=== PATIENT | female | born 1945 | race Caucasian/White ===

== ENCOUNTER → 2017-03-26 | Outpatient (CLI) | payer OTHER, MEDICARE ==
--- NOTE | 2017-03-26 14:39 | MAMMOGRAPHY REPORT ---
BILATERAL DIGITAL SCREENING MAMMOGRAM TOMOSYNTHESIS WITH CAD: 03/26/2017 CLINICAL HISTORY: Routine screening. Patient has no complaints. TECHNIQUE: Breast tomosynthesis in addition to standard 2D mammography was performed. Current study was also evaluated with a Computer Aided Detection (CAD) system. COMPARISON: Comparison is made to exams dated: 02/26/2016 mammogram, 02/22/2015 mammogram, 02/21/2014 mammogram, 01/27/2013 mammogram, 01/26/2012 mammogram - [facility], and 10/18/2007. BREAST COMPOSITION: There are scattered areas of fibroglandular density in both breasts. FINDINGS: No suspicious masses, calcifications, or areas of architectural distortion are noted in ei ther breast. There has been no significant interval change compared to prior exams. Focal asymmetry in the left upper outer quadrant is stable dating back to at least the 2007 and 2009 exams, and consi dered benign given long-term stability. IMPRESSION: ACR BI-RADS CATEGORY 2: BENIGN There is no mammographic evidence of malignancy. A 1 year screening mammogram is recommended. The pa tient will receive written notification of the results. Approximately 10% of breast cancers are not detected with mammography. A negative mammographic report should not delay biopsy if a clinically suggestive mass is present. Taryn Fortune M.D. /:03/26/2017 12:23:46 [employer] Faculty Member: Ada GLORIA(Olya)(Aminta), [facility] letter sent: Normal 1/2 BI-RADS Code: ACR BI-RADS Category 2: Benign
== END | disposition home or self-care (01) ==
LOC: C.MAMM 10:26
PROVIDERS: ATTEND Internal Medicine
DX: Z12.31 Encounter for screening mammogram for malignant neoplasm of breast (principal)

== ENCOUNTER 2017-07-10 14:36 | Emergency (ER) | payer OTHER, MEDICARE ==
[~2017-07-10] VITALS: Ht 165.1 cm; Wt 58.0 kg
[2017-07-10 14:44] VITALS: TEMP 36.6; Ht 165.1 cm; Wt 58.0 kg
[2017-07-10 15:02] VITALS: O2SAT 98
--- NOTE | 2017-07-10 15:24 | EMERGENCY ROOM VISIT NOTE ---
History Report prepared by Lazaroibharjeet: Emelina Mi Under the Supervision of: Dr. Belle Marvin D.O. First contact with patient: 14:49 Chief Complaint: IRREGULAR HEARTBEAT Stated Complaint: HEART RACING Nursing Triage Summary: patient states she has felt an "irregular heart beat" for about 1 week. Called PCP and was not able to get in until Thursday. Patient states her irregular heart beat is on and off. not constant. 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 She notes it "feels like her heart is skipping a beat." She reports she called her PCP but could not get into her PCP until a week from today, which is why she is at the ED today. She reports she sometimes feels weak and like she is "going to black out." Pt denies headache, LOC, change in vision, fevers, chest pain, abdominal pain, shortness of breath, nausea, vomiting, diarrhea, pain with urination, melena, recent travel. She does not take any medications. Pt states she walks 2 miles daily and has no specific symptoms while walking but feels more tired when she is done. 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 Review of Systems See HPI for pertinent positives & negatives. A total of 10 systems reviewed and were otherwise negative. Family History High blood pressure Social History Smoking Status: Never Smoker Smokeless Tobacco Use: Unknown Housing Status: lives with significant other Occupation Status: retired Current/Historical Medications No Active Prescriptions or Reported Meds Allergies Coded Allergies: Penicillins (Unverified Allergy, Intermediate, RASH, 07/10/17) Sulfa Antibiotics (Unverified Allergy, Intermediate, HIVES, 07/10/17) Physical Exam Vital Signs Date Time Temp Pulse Resp B/P (MAP) Pulse Ox O2 Delivery O2 Flow Rate FiO2 07/10/17 18:20 79 16 144/61 98 07/10/17 16:41 99 Room Air 4/27/18 16:12 76 20 142/51 99 Room Air 07/10/17 15:21 83 07/10/17 15:02 98 Room Air 07/10/17 14:44 36.6 86 16 151/74 97 Room Air Physical Exam GENERAL: alert, well appearing, well nourished, no distress, non-toxic EYE EXAM: normal conjunctiva, PERRL and EOM's grossly intact OROPHARYNX: no exudate, no erythema, lips, buccal mucosa, and tongue normal and mucous membranes are moist NECK: supple, no nuchal rigidity, no adenopathy, non-tender LUNGS: Clear to auscultation. Normal chest wall mechanics, no w/r/r HEART: no murmurs, S1 normal and S2 normal ABDOMEN: abdomen soft, non-tender, normo-active bowel sounds, no masses, no rebound or guarding. BACK: Back is symmetrical on inspection and there is no deformity, no midline tenderness, no CVA tenderness. SKIN: no rashes and no bruising UPPER EXTREMITIES: upper extremities are grossly normal. LOWER EXTREMITIES: No pitting edema. NEURO EXAM: Normal sensorium, cranial nerves II-XII grossly intact, normal speech, no gross weakness of arms, no gross weakness of legs. No ataxia, nml gait. Medical Decision & Procedures ER Provider Diagnostic Interpretation: Radiology results have been interpreted by the radiologist and reviewed by me. CHEST ONE VIEW PORTABLE CLINICAL HISTORY: Palpitations. COMPARISON STUDY: No previous studies for comparison. FINDINGS: The lung volumes are normal. Lungs are clear. No pneumothorax or pleural effusion is present. There is no evidence for pulmonary edema. Cardiac size is normal. Mediastinal contours are normal. IMPRESSION: No acute cardiopulmonary findings. Electronically signed by: Panchito Nelson M.D. 07/10/2017 3:33 PM (CHEST FOR PE) ANGIO WITH CT DOSE: 214.95 mGy.cm HISTORY: Chest pain dyspnea TECHNIQUE: Multiaxial CT images of the chest were performed following the intravenous administration of contrast to evaluate the pulmonary arteries. Maximal intensity projection images were also obtained. A dose lowering technique was utilized adhering to the principles of ALARA. COMPARISON STUDY: None. FINDINGS: There is a normal caliber thoracic aorta with no evidence for dissection. There is no evidence for pulmonary embolus. No pleural effusions. No pneumothorax. The liver and spleen are unremarkable. No mediastinal or hilar lymphadenopathy. The central airways are patent. The lungs are clear. IMPRESSION: No evidence for pulmonary embolus. The lungs are clear. The above report was generated using voice recognition software. It may contain grammatical, syntax or spelling errors. Electronically signed by: Tang Díaz M.D. 07/10/2017 6:02 PM Laboratory Results 07/10/17 15:25 Red Blood Count 4.42, Mean Corpuscular Volume 89.8, Mean Corpuscular Hemoglobin 31.7, Mean Corpuscular Hemoglobin Concent 35.3, Mean Platelet Volume 11.0, Neutrophils (%) (Auto) 76.5, Lymphocytes (%) (Auto) 17.9, Monocytes (%) (Auto) 4.6, Eosinophils (%) (Auto) 0.4, Basophils (%) (Auto) 0.3, Neutrophils # (Auto) 5.36, Lymphocytes # (Auto) 1.25, Monocytes # (Auto) 0.32, Eosinophils # (Auto) 0.03, Basophils # (Auto) 0.02 07/10/17 15:25 Test 07/10/17 15:25 07/10/17 15:29 07/10/17 16:20 07/10/17 17:03 White Blood Count 7.00 K/uL (4.8-10.8) Red Blood Count 4.42 M/uL (4.2-5.4) Hemoglobin 14.0 g/dL (12.0-16.0) Hematocrit 39.7 % (37-47) Mean Corpuscular Volume 89.8 fL (80-100) Mean Corpuscular Hemoglobin 31.7 pg (25-34) Mean Corpuscular Hemoglobin Concent 35.3 g/dl (32-36) Platelet Count 201 K/uL (130-400) Mean Platelet Volume 11.0 fL (7.4-10.4) Neutrophils (%) (Auto) 76.5 % Lymphocytes (%) (Auto) 17.9 % Monocytes (%) (Auto) 4.6 % Eosinophils (%) (Auto) 0.4 % Basophils (%) (Auto) 0.3 % Neutrophils # (Auto) 5.36 K/uL (1.4-6.5) Lymphocytes # (Auto) 1.25 K/uL (1.2-3.4) Monocytes # (Auto) 0.32 K/uL (0.11-0.59) Eosinophils # (Auto) 0.03 K/uL (0-0.5) Basophils # (Auto) 0.02 K/uL (0-0.2) RDW Standard Deviation 42.3 fL (36.4-46.3) RDW Coefficient of Variation 12.9 % (11.5-14.5) Immature Granulocyte % (Auto) 0.3 % Immature Granulocyte # (Auto) 0.02 K/uL (0.00-0.02) Anion Gap 6.0 mmol/L (3-11) Est Creatinine Clear Calc Drug Dose 35.5 ml/min Estimated GFR () 47.9 Estimated GFR (Non- 41.3 BUN/Creatinine Ratio 10.2 (10-20) Calcium Level 9.1 mg/dl (8.5-10.1) Magnesium Level 2.2 mg/dl (1.8-2.4) Total Bilirubin 0.4 mg/dl (0.2-1) Aspartate Amino Transf (AST/SGOT) 16 U/L (15-37) Alanine Aminotransferase (ALT/SGPT) 17 U/L (12-78) Alkaline Phosphatase 63 U/L (45-117) Troponin I < 0.015 ng/ml (0-0.045) Pro-B-Type Natriuretic Peptide 3120 pg/ml (0-900) Total Protein 7.1 gm/dl (6.4-8.2) Albumin 4.0 gm/dl (3.4-5.0) Globulin 3.1 gm/dl (2.5-4.0) Albumin/Globulin Ratio 1.3 (0.9-2) Thyroid Stimulating Hormone (TSH) 1.570 uIu/ml (0.300-4.500) Bedside Troponin I < 0.030 ng/ml (0-0.045) Urine Color YELLOW Urine Appearance CLEAR (CLEAR) Urine pH 6.0 (4.5-7.5) Urine Specific [place] 1.009 (1.000-1.030) Urine Protein NEG (NEG) Urine Glucose (UA) NEG (NEG) Urine Ketones NEG (NEG) Urine Occult Blood NEG (NEG) Urine Nitrite NEG (NEG) Urine Bilirubin NEG (NEG) Urine Urobilinogen NEG (NEG) Urine Leukocyte Esterase NEG (NEG) Prothrombin Time 10.0 SECONDS (9.0-12.0) Prothromb Time International Ratio 1.0 (0.9-1.1) D-Dimer 550 ug/L FEU (0-500) Laboratory results per my review. ECG Per My Interpretation Indication: palpitations Rate (beats per minute): 83 Rhythm: sinus rhythm Findings: ST depression, T-wave inversion (V4, V5, and V6. T wave inversion in I and AVL ) Comparison ECG Date: January 26, 2012 Change: T wave inversion in I and AVL are new. ED Course 1505: The patient was evaluated in room B3. A complete history and physical exam was performed. 165: I reevaluated the patient at this time. She still wants to go home. 1713: I discussed the patients case with Dr. Mittal, Cardiology. He states as long as the dimer is negative, she should call the office on Thursday for a follow up and an outpatient echo. 1740: I checked on the patient at this time. She is agreeable to the CAT scan. If the CAT scan is clean, she can go home. 1812: Upon reevaluation, the patient is feeling better. I discussed the findings and the treatment plan with the patient. She verbalizes agreement and understanding. She was discharged home. Medical Decision Differential diagnosis: Etiologies such as premature contractions, electrolyte abnormality, cardiac dysrhythmia, thyroid dysfunction, pulmonary embolism, infection, gastrointestinal, metabolic, infection, hypo/hyperglycemia, electrolyte abnormalities, cardiac sources, intracerebral event, toxicologic, neurologic, as well as others were entertained. Pt well appearing here. No ectopy or dysrhythmia noted on tele. VS stable. Labs and CTA chest reassuring with the exception of an elevated BNP. No overt sx of CHF, pt without increased WOB or hypoxia. Pt aware of BNP and discussion with cardiology and need for close f/u and outpt echo. Doubt acs, no evidence of tamponade, effusion, pna, dissection, pe. All questions answered at bedside and pt and verbalized understanding and were agreeable with plan. I do not suspect neuro etiology for weakness, no evidence of infectious etiology. Medication Reconcilliation Current Medication List: was personally reviewed by me Blood Pressure Screening Patient's blood pressure: Elevated blood pressure Blood pressure disposition: Elevated BP felt to be situational Consults Time Called: 1700 Consulting Physician: Dr. Mittal, Cardiology Returned Call: 1713 I discussed the patients case with Dr. Mittal, Cardiology. He states as long as the dimer is negative, she should call the office on Thursday for a follow up and an outpatient echo. Impression Primary Impression: Palpitations Additional Impressions: Fatigue Elevated brain natriuretic peptide (BNP) level Scribe Attestation The scribe's documentation has been prepared under my direction and personally reviewed by me in its entirety. I confirm that the note above accurately reflects all work, treatment, procedures, and medical decision making performed by me. Departure Information Dispostion Home / Self-Care Prescriptions No Active Prescriptions or Reported Meds Referrals Cezar Alejandro D.O. (PCP) Forms HOME CARE DOCUMENTATION FORM, IMPORTANT VISIT INFORMATION Patient Instructions My [facility] Additional Instructions Please call the cardiology office first thing Thursday morning to schedule an appointment for next week as well as an echo of your heart. Please avoid strenuous activity or heavy lifting until you are otherwise seen and evaluated. You may eat and drink regularly, however please try to avoid salt in your diet. If you have any worsening palpitations, develop chest pain or pressure, trouble breathing, dizziness or lightheadedness, fevers or chills, swelling in your legs, or you have any other new concerns, please return the emergency room. Problem Qualifiers Additional Impressions: Fatigue Fatigue type: unspecified Qualified Codes: R53.83 - Other fatigue
--- NOTE | 2017-07-10 15:34 | DIAGNOSTIC IMAGING REPORT ---
CHEST ONE VIEW PORTABLE CLINICAL HISTORY: Palpitations. COMPARISON STUDY: No previous studies for comparison. FINDINGS: The lung volumes are normal. Lungs are clear. No pneumothorax or pleural effusion is present. There is no evidence for pulmonary edema. Cardiac size is normal. Mediastinal contours are normal. IMPRESSION: No acute cardiopulmonary findings. Electronically signed by: Panchito Nelson M.D. 07/10/2017 3:33 PM Dictated Date/Time: 07/10/2017 3:32 PM
[2017-07-10 15:38] LABS: BASO % 0.3 %; BASO ABS # 0.02 K/uL (0-0.2); EOS % 0.4 %; EOS ABS # 0.03 K/uL (0-0.5); HEMATOCRIT 39.7 % (37-47); IG# 0.02 K/uL (0.00-0.02); LYMPH % 17.9 %; LYMPH ABS # 1.25 K/uL (1.2-3.4); MEAN CELL VOLUME 89.8 fL (80-100); MEAN CORPUSCULAR HEMOGLOBIN 31.7 pg (25-34); MEAN CORPUSCULAR HGB CONC 35.3 g/dl (32-36); MONO % 4.6 %; MONO ABS # 0.32 K/uL (0.11-0.59); NEUT % 76.5 %; NEUT ABS # 5.36 K/uL (1.4-6.5); PLATELET COUNT 201 K/uL (130-400); RED CELL DISTRIBUTION WIDTH CV 12.9 % (11.5-14.5); RED CELL DISTRIBUTION WIDTH SD 42.3 fL (36.4-46.3)
[2017-07-10 15:54] LABS: BLOOD UREA NITROGEN 13 mg/dl (7-18); CALCIUM 9.1 mg/dl (8.5-10.1); CARBON DIOXIDE 27 mmol/L (21-32); CREATININE 1.29 mg/dl (0.60-1.20); GLUCOSE 159 mg/dl (70-99); POTASSIUM 3.5 mmol/L (3.5-5.1); SODIUM 140 mmol/L (136-145)
[2017-07-10 16:05] LABS: ALKALINE PHOSPHATASE 63 U/L (45-117); ALT/SGPT 17 U/L (12-78); AST/SGOT 16 U/L (15-37); TOTAL PROTEIN 7.1 gm/dl (6.4-8.2)
[2017-07-10] MEDS ORDERED: OPTIRAY 320 IV PRN (17:45)
--- NOTE | 2017-07-10 18:04 | DIAGNOSTIC IMAGING REPORT ---
(CHEST FOR PE) ANGIO WITH CT DOSE: 214.95 mGy.cm HISTORY: Chest pain dyspnea TECHNIQUE: Multiaxial CT images of the chest were performed following the intravenous administration of contrast to evaluate the pulmonary arteries. Maximal intensity projection images were also obtained. A dose lowering technique was utilized adhering to the principles of ALARA. COMPARISON STUDY: None. FINDINGS: There is a normal caliber thoracic aorta with no evidence for dissection. There is no evidence for pulmonary embolus. No pleural effusions. No pneumothorax. The liver and spleen are unremarkable. No mediastinal or hilar lymphadenopathy. The central airways are patent. The lungs are clear. IMPRESSION: No evidence for pulmonary embolus. The lungs are clear. The above report was generated using voice recognition software. It may contain grammatical, syntax or spelling errors. Electronically signed by: Tang Díaz M.D. 07/10/2017 6:02 PM Dictated Date/Time: 07/10/2017 5:59 PM
[2017-07-10 18:20] VITALS: BP 144/61; PULSE 79; O2SAT 98
== END 2017-07-10 18:21 | disposition home or self-care (01) ==
LOC: C.EDB 14:38
DX: R00.2 Palpitations (principal); R53.83 Other fatigue; R74.8 Abnormal levels of other serum enzymes; Z82.49 Family history of ischemic heart disease and other diseases of the circulatory system; Z88.0 Allergy status to penicillin; Z88.2 Allergy status to sulfonamides